=== PATIENT | male | born 1945 | race Two or more races ===

== ENCOUNTER 2021-01-23 13:40 | Outpatient (CLI) | payer OTHER | END 2021-01-23 13:45 | disposition home or self-care (01) | LOC: PPH VACUNA 13:40 | PROVIDERS: ATTEND Emergency Medicine Pediatric Emergency Medicine | DX: Z23 Encounter for immunization (principal) ==

== ENCOUNTER 2021-08-21 08:00 | Outpatient (CLI) | payer OTHER | END 2021-08-21 08:30 | disposition home or self-care (01) | LOC: PPH VACUNA 08:00 | PROVIDERS: ATTEND Emergency Medicine Pediatric Emergency Medicine | DX: Z23 Encounter for immunization (principal); Z71.85 Encounter for immunization safety counseling ==